=== PATIENT | male | born 1985 | race Caucasian/White ===

== ENCOUNTER 2017-09-05 17:01 | Emergency (ER) | payer OTHER ==
[2017-09-05] MEDS: ALBUTEROL SULFATE 2.5 MG/0.5 ML INH NEB SOLN INH (18:22)
[2017-09-05] MEDS: LevoFLOXacin 750 MG TABLET PO (19:15)
== END 2017-09-05 19:33 | disposition home or self-care (01) ==
LOC: M ED 17:01
DX: J18.1 Lobar pneumonia, unspecified organism (principal)
CPT/HCPCS: 71046

== ENCOUNTER 2018-10-05 12:32 | Emergency (ER) | payer OTHER ==
[~2018-10-05] VITALS: Ht 177.8 cm; Wt 98.4 kg
[~2018-10-05 12:32] MED LIST: BENZ200C70 PO; CLAR1TAB2 PO; FLON1SPR; LEVA750T7 PO; MUCI600T37 PO; [UNRECOGNIZED DRUG - CODE] PO
[2018-10-05] MEDS ORDERED: AMLO-140 PO (13:27)
[2018-10-05] MEDS ORDERED: amLODIPine 10 MG TAB PO ONE (14:00)
[2018-10-05 14:07] VITALS: BP 129/90
[2018-10-05] MEDS ORDERED: AMLO25TA PO (14:23)
[2018-10-05] MEDS ORDERED: AMLO10TA5 PO (14:24)
== END 2018-10-05 14:36 | disposition home or self-care (01) ==
LOC: M ED 12:32
DX: Z76.0 Encounter for issue of repeat prescription (principal); I10 Essential (primary) hypertension

== ENCOUNTER 2018-12-17 21:08 | Emergency (ER) | payer OTHER ==
[~2018-12-17] VITALS: Ht 177.8 cm; Wt 95.0 kg
[2018-12-17 21:08] VITALS: BP 133/71
[~2018-12-17 21:08] MED LIST changes: +AMLO-140 PO; +AMLO10TA5 PO; +AMLO25TA PO
[2018-12-17] MEDS ORDERED: amLODIPine 10 MG TAB PO ONE (22:30)
[2018-12-17 22:32] VITALS: BP 133/71
== END 2018-12-17 22:54 | disposition home or self-care (01) ==
LOC: M ED 21:08
DX: Z76.0 Encounter for issue of repeat prescription (principal); I10 Essential (primary) hypertension; Z79.899 Other long term (current) drug therapy; F17.220 Nicotine dependence, chewing tobacco, uncomplicated

== ENCOUNTER 2019-04-08 09:00 | Emergency (ER) | payer OTHER ==
[~2019-04-08] VITALS: Ht 177.8 cm; Wt 91.1 kg
[2019-04-08] MEDS ORDERED: LISI-538 (09:06)
[2019-04-08] MEDS ORDERED: IPRATROPIUM 0.5MG/ALBUTEROL 2.5MG INH SOL UD 3ML (DUONEB)(J7620) NEB ONE (09:30)
[2019-04-08 09:37] LABS: BASO % 0.4 % (0.0-1.0); EOS # 0.2 10^3/uL (0.0-0.5); EOS % 3.7 % (0.0-3.0); HEMATOCRIT 47.8 % (42.0-52.0); HEMOGLOBIN 15.6 g/dl (13.5-17.5); LYMPH # 1.6 10^3/uL (1.5-5.0); LYMPH % 27.1 % (24.0-44.0); MEAN CORPUSCULAR HEMOGLOBIN 28.7 pg (27.0-33.0); MEAN CORPUSCULAR HGB CONC 32.6 g/dl (32.0-36.5); MEAN CORPUSCULAR VOLUME 87.9 fl (80.0-96.0); MONO # 0.6 10^3/uL (0.0-0.8); NEUTROPHILS # 3.4 10^3/uL (1.5-8.5); NEUTROPHILS % 58.6 % (36.0-66.0); PLATELET COUNT, AUTOMATED 230 10^3/uL (150-450); RED BLOOD COUNT 5.44 10^6/uL (4.30-6.10); WHITE BLOOD COUNT 5.7 10^3/uL (4.0-10.0)
[2019-04-08] MEDS ORDERED: ISOVUE-370 76% 100ML VIAL (Q9967) As Ordered ONE (09:38)
--- NOTE | 2019-04-08 10:05 | REP ---
Clinical: Chest pain and shortness of breath. Technique: Axial contrast enhanced images from the thoracic inlet to the upper abdomen using 100 ml Isovue 370 intravenous contrast material with multiplanar re-formations. Findings: Evaluation is somewhat limited due to respiratory motion artifact. However, satisfactory enhancement of the pulmonary vasculature is achieved and no filling defects are identified to suggest pulmonary embolus. Further evaluation of the mediastinum demonstrates normal thoracic aorta, heart and pericardium. The bilateral lung segura are well aerated and without consolidation pleural effusion or pneumothorax. Tracheobronchial tree is patent. No nodule or mass lesion is identified. No adenopathy noted. Surrounding musculoskeletal structures intact Impression: No evidence for pulmonary embolus. No acute mediastinal or pleural parenchymal process. Electronically Signed by Kavon Mcrae MD 04/08/2019 09:57 A
[2019-04-08] MEDS ORDERED: methylPREDNISolone INJ 125 MG/2 ML VIAL (J2930) IV ONE (10:15)
[2019-04-08] MEDS ORDERED: PRED10TA2 PO (10:16)
[2019-04-08 10:41] VITALS: BP 136/82
== END 2019-04-08 11:14 | disposition home or self-care (01) ==
LOC: M ED 09:00
DX: J20.9 Acute bronchitis, unspecified (principal); I10 Essential (primary) hypertension; Z79.899 Other long term (current) drug therapy
CPT/HCPCS: 71275; 80047; 85025; 94640; 96374; 99284; J2930; Q9967

== ENCOUNTER → 2020-01-13 | Outpatient (CLI) | payer OTHER ==
[~2020-01-13] MED LIST changes: +ADV500INH; -AMLO10TA5 PO; +AMLO1TAB25; +AMLO1TAB25 PO; +KEFL500C17 PO; +LISI-538; +PRED10TA2 PO; +PROAAER10; +SPIR1AER
--- NOTE | 2020-02-10 11:58 | REP ---
CHEST X-RAY CLINICAL: Severe persistent asthma. TECHNIQUE: PA and lateral. COMPARISON: 09/05/2017. FINDINGS: Mediastinum and cardiac silhouette are normal. Lung segura clear without focal consolidation, effusion, or pneumothorax. Skeletal structures are intact. IMPRESSION: No acute cardiopulmonary process or focal consolidation. MTDD
== END ==
LOC: M RAD 14:31 → M LAB 14:31
PROVIDERS: ATTEND Nurse Practitioner Adult Health
DX: J45.50 Severe persistent asthma, uncomplicated (principal)

== ENCOUNTER 2020-03-05 21:37 | Emergency (ER) | payer OTHER ==
[~2020-03-05] VITALS: Ht 177.8 cm; Wt 91.4 kg
[~2020-03-05 21:37] MED LIST changes: -ADV500INH; -AMLO1TAB25; -KEFL500C17 PO; -PROAAER10; -SPIR1AER
[2020-03-05 21:38] VITALS: BP 135/76
[2020-03-05] MEDS ORDERED: PROAAER10 (21:45)
[2020-03-05] MEDS ORDERED: ADV500INH (21:45)
[2020-03-05] MEDS ORDERED: SPIR1AER (21:45)
[2020-03-05] MEDS ORDERED: AMLO1TAB25 (21:45)
[2020-03-05] MEDS ORDERED: KEFL500C17 PO ×2 (22:28→22:38)
[2020-03-05] MEDS ORDERED: CEPHALEXIN 500 MG CAP PO ONE (22:30)
== END 2020-03-05 22:42 | disposition home or self-care (01) ==
LOC: M ED 21:37
DX: L72.3 Sebaceous cyst (principal); I10 Essential (primary) hypertension; Z79.899 Other long term (current) drug therapy; F17.210 Nicotine dependence, cigarettes, uncomplicated

== ENCOUNTER → 2020-08-01 | Outpatient (REF) | payer OTHER ==
[~2020-08-01] MED LIST changes: +ADV500INH; +AMLO1TAB25; +KEFL500C17 PO; -LISI-538; +LISI20TA33; +PROAAER10; +SPIR1AER
[2020-08-01 18:03] LABS: BASO % 0.6 % (0.0-1.0); EOS # 0.2 10^3/uL (0.0-0.5); EOS % 2.4 % (0.0-3.0); HEMATOCRIT 45.5 % (42.0-52.0); HEMOGLOBIN 15.2 g/dl (13.5-17.5); LYMPH # 1.7 10^3/uL (1.5-5.0); LYMPH % 24.4 % (24.0-44.0); MEAN CORPUSCULAR HEMOGLOBIN 29.4 pg (27.0-33.0); MEAN CORPUSCULAR HGB CONC 33.4 g/dl (32.0-36.5); MONO # 0.9 10^3/uL (0.0-0.8); MONO % 13.3 % (2.0-8.0); NEUTROPHILS % 58.7 % (36.0-66.0); PLATELET COUNT, AUTOMATED 275 10^3/uL (150-450); RED BLOOD COUNT 5.17 10^6/uL (4.30-6.10); WHITE BLOOD COUNT 6.8 10^3/uL (4.0-10.0)
== END ==
LOC: M LAB REF 16:47
PROVIDERS: ATTEND Nurse Practitioner Adult Health
DX: J45.50 Severe persistent asthma, uncomplicated (principal)

== ENCOUNTER → 2021-10-11 | Outpatient (CLI) | payer OTHER | LOC: M RAD 14:20 | PROVIDERS: ATTEND Nurse Practitioner Adult Health | DX: R06.2 Wheezing (principal) ==

== ENCOUNTER 2021-11-04 07:50 | Emergency (ER) | payer OTHER ==
[~2021-11-04] VITALS: Ht 177.8 cm; Wt 101.4 kg
[2021-11-04 07:51] VITALS: BP 140/80
[2021-11-04] MEDS ORDERED: PROPARACAINE 0.5% OPHTH SOL 15ML XX ONE (08:05)
[2021-11-04] MEDS ORDERED: FLUORESCEIN OPHTH 1 MG STRIP XX ONE (08:05)
[2021-11-04] MEDS ORDERED: PROPARACAINE 0.5% OPHTH SOL 15ML OS ONE (08:30)
[2021-11-04] MEDS ORDERED: FLUORESCEIN OPHTH 1 MG STRIP OS ONE (08:30)
[2021-11-04] MEDS ORDERED: OCUF0.25 OD (11:05)
[2021-11-04] MEDS ORDERED: OFLOXACIN 0.3 % (OCUFLOX) OPTH SOL 5ML OD ONE (11:05)
== END 2021-11-04 11:29 | disposition home or self-care (01) ==
LOC: M ED 07:50
DX: H10.9 Unspecified conjunctivitis (principal); I10 Essential (primary) hypertension; J45.909 Unspecified asthma, uncomplicated; Z88.8 Allergy status to other drugs, medicaments and biological substances; Z79.899 Other long term (current) drug therapy

== ENCOUNTER 2021-11-22 00:37 | Emergency (ER) | payer OTHER ==
[~2021-11-22] VITALS: Ht 177.8 cm; Wt 100.0 kg
[~2021-11-22 00:37] MED LIST changes: +OCUF0.25 OD
[2021-11-22 07:09] VITALS: BP 129/81
== END 2021-11-22 07:20 | disposition home or self-care (01) ==
LOC: M ED 00:37
DX: S20.211A Contusion of right front wall of thorax, initial encounter (principal); S80.211A Abrasion, right knee, initial encounter; W17.89XA Other fall from one level to another, initial encounter; Y92.830 Public park as the place of occurrence of the external cause; I10 Essential (primary) hypertension; Z88.8 Allergy status to other drugs, medicaments and biological substances

== ENCOUNTER 2023-05-03 22:07 | Emergency (ER) | payer OTHER ==
[~2023-05-03] VITALS: Ht 177.8 cm; Wt 94.3 kg
[2023-05-03 22:09] VITALS: TEMP 98.3
[2023-05-04 00:11] LABS: BASO % 0.2 % (0.0-1.0); EOS % 0.6 % (0.0-3.0); HEMATOCRIT 46.7 % (42.0-52.0); HEMOGLOBIN 15.2 g/dl (13.5-17.5); LYMPH # 1.7 10^3/uL (1.5-5.0); MEAN CORPUSCULAR HEMOGLOBIN 27.7 pg (27.0-33.0); MEAN CORPUSCULAR HGB CONC 32.5 g/dl (32.0-36.5); MEAN CORPUSCULAR VOLUME 85.2 fl (80.0-96.0); MONO # 0.4 10^3/uL (0.0-0.8); MONO % 7.6 % (2.0-8.0); NEUTROPHILS # 3.2 10^3/uL (1.5-8.5); NEUTROPHILS % 59.5 % (36.0-66.0); PLATELET COUNT, AUTOMATED 256 10^3/uL (150-450); RED BLOOD COUNT 5.48 10^6/uL (4.30-6.10); WHITE BLOOD COUNT 5.4 10^3/uL (4.0-10.0)
[2023-05-04 00:27] LABS: BLOOD UREA NITROGEN 16 MG/DL (9-23); CARBON DIOXIDE LEVEL 26 MMOL/L (20-31); CHLORIDE LEVEL 105 MMOL/L (98-107); CK-MB VALUE MASS < 1.0 NG/ML (<3.6); CREATININE FOR GFR 0.85 MG/DL (0.70-1.30); GLOMERULAR FILTRATION RATE > 60.0 (>60); GLUCOSE, FASTING 93 MG/DL (60-100); POTASSIUM SERUM 4.1 MMOL/L (3.5-5.1); SODIUM LEVEL 139 MMOL/L (136-145)
[2023-05-04 00:31] LABS: CPK CREATINE PHOSPHOKINASE 108 U/L (46-171); MB/CK RELATIVE INDEX 0.92 (< OR =4)
[2023-05-04 01:28] VITALS: BP 147/96; O2SAT 99
== END 2023-05-04 01:31 | disposition home or self-care (01) ==
LOC: M ED 22:07
DX: R07.89 Other chest pain (principal); Z87.891 Personal history of nicotine dependence; Z88.8 Allergy status to other drugs, medicaments and biological substances; I44.4 Left anterior fascicular block; Z79.899 Other long term (current) drug therapy